=== PATIENT | female | born 1945 | race Caucasian/White ===

== ENCOUNTER 2017-07-15 17:51 | Emergency (ER) | payer MEDICARE, MEDICAID ==
[~2017-07-15] VITALS: Ht 162.6 cm; Wt 60.0 kg
[~2017-07-15 17:51] MED LIST: ALPR1TAB2 PO; BUTA1CAP57 PO; DIAZ5TAB PO; MORP-52 PO; MORP15TA3 PO; OXYC-307 PO
[2017-07-15] MEDS ORDERED: DIAZEPAM 5 MG TABLET PO ONE (19:00)
[2017-07-15] MEDS ORDERED: LORazepam 1MG TABLET PO ONE (19:00)
[2017-07-15 19:01] LABS: INTERNATIONAL NORMALIZED RATIO 0.97 (0.93-1.1)
[2017-07-15 19:05] LABS: ALANINE AMINOTRANSFERASE 22 U/L (12-78); ANION GAP 7 mmol/L (5-15); CHLORIDE 108 mmol/L (98-107); CREATININE 0.65 mg/dL (0.55-1.02)
[2017-07-15 19:08] LABS: ALKALINE PHOSPHATASE 82 U/L (45-117); BILIRUBIN,TOTAL 0.4 mg/dL (0.2-1.0); TOTAL PROTEIN 7.4 g/dL (6.4-8.2); TROPONIN I < 0.015 ng/mL (0.000-0.045)
[2017-07-15] MEDS ORDERED: DIAZEPAM 5 MG TABLET ONE (19:19)
[2017-07-15 19:28] LABS: BASOPHILS # (AUTO) 0.04 x10^3/uL (0-0.1); BASOPHILS % (AUTO) 0 % (0-1); EOSINOPHILS # (AUTO) 0.12 x10^3/uL (0-0.4); EOSINOPHILS % (AUTO) 1 % (1-7); LYMPHOCYTES # (AUTO) 2.94 x10^3/uL (1-3.4); LYMPHOCYTES % (AUTO) 30 % (22-44); MD NO; MEAN CORPUSCULAR HEMOGLOBIN 33.4 pg (27.0-34.8); MEAN CORPUSCULAR HGB CONC 34.4 g/dL (32.4-35.8); MEAN CORPUSCULAR VOLUME 97.1 fL (80-100); MEAN PLATELET VOLUME 8.5 fL (7.4-10.4); MONOCYTES # (AUTO) 1.07 x10^3/uL (0.2-0.8); MONOCYTES % (AUTO) 11 % (2-9); NEUTROPHILS # (AUTO) 5.66 x10^3/uL (1.8-6.8); NEUTROPHILS % (AUTO) 58 % (42-75); PLATELET COUNT 236 x10^3/uL (130-400); RED BLOOD COUNT 4.65 x10^6/uL (3.82-5.3); RED CELL DISTRIBUTION WIDTH 13.2 % (9.6-15.2)
[2017-07-15 20:21] VITALS: BP 142/52
== END 2017-07-15 20:30 | disposition home or self-care (01) ==
LOC: ED 20:24
DX: M54.2 Cervicalgia (principal); G89.29 Other chronic pain; F17.200 Nicotine dependence, unspecified, uncomplicated; R79.1 Abnormal coagulation profile
CPT/HCPCS: 36415; 80053; 84484; 85025; 85610; 85730; 93005; 99285

== ENCOUNTER 2017-08-06 15:53 | Inpatient (IN) | payer MEDICARE, MEDICAID ==
[~2017-08-06] VITALS: Ht 162.6 cm; Wt 67.0 kg
[2017-08-06] MEDS ORDERED: SODIUM CHLORIDE FLUSH 10ML SYR IVF ONE (16:30)
[2017-08-06 16:45] LABS: BASOPHILS # (AUTO) 0.05 x10^3/uL (0-0.1); BASOPHILS % (AUTO) 1 % (0-1); EOSINOPHILS % (AUTO) 1 % (1-7); LYMPHOCYTES # (AUTO) 2.97 x10^3/uL (1-3.4); LYMPHOCYTES % (AUTO) 29 % (22-44); MD NO; MEAN CORPUSCULAR HEMOGLOBIN 33.1 pg (27.0-34.8); MEAN CORPUSCULAR HGB CONC 34.1 g/dL (32.4-35.8); MEAN CORPUSCULAR VOLUME 97.3 fL (80-100); MEAN PLATELET VOLUME 8.3 fL (7.4-10.4); MONOCYTES # (AUTO) 0.83 x10^3/uL (0.2-0.8); MONOCYTES % (AUTO) 8 % (2-9); NEUTROPHILS # (AUTO) 6.25 x10^3/uL (1.8-6.8); NEUTROPHILS % (AUTO) 61 % (42-75); PLATELET COUNT 282 x10^3/uL (130-400); RED BLOOD COUNT 4.73 x10^6/uL (3.82-5.3); RED CELL DISTRIBUTION WIDTH 13.4 % (9.6-15.2)
[2017-08-06 16:52] LABS: INTERNATIONAL NORMALIZED RATIO 0.91 (0.93-1.1); PROTHROMBIN TIME 9.4 Seconds (9.6-11.5)
[2017-08-06 16:55] LABS: ALBUMIN 3.9 g/dL (3.4-5.0); ANION GAP 5 mmol/L (5-15); CHLORIDE 106 mmol/L (98-107); CREATININE 0.73 mg/dL (0.55-1.02)
[2017-08-06] MEDS ORDERED: DIAZ5TAB PO (17:52)
[2017-08-06] MEDS ORDERED: ROBAXIN (17:52)
[2017-08-06] MEDS ORDERED: DOCUSATE 100 MG CAPSULE PO PRN (18:30)
[2017-08-06] MEDS ORDERED: ONDANSETRON 2MG/ML, 2ML IVPush PRN (18:30)
[2017-08-06] MEDS ORDERED: BISACODYL 10 MG SUPP PR PRN (18:30)
[2017-08-06] MEDS ORDERED: POLYETHYLENE GLYCOL 17 GM PACKET PO PRN (18:30)
[2017-08-06] MEDS ORDERED: hydrALAzine 20 MG/ML, 1ML IVPush PRN (18:30)
[2017-08-06] MEDS ORDERED: SODIUM CHLORIDE FLUSH 10ML SYR IVF PRN (19:00)
[2017-08-06] MEDS ORDERED: HEPARIN 25,000 UNITS/500ML PMX 500 ML IV PRN ×2 (19:00→20:30)
[2017-08-06] MEDS ORDERED: HEPARIN 5,000 UNITS/ML, 1ML IV ONE ×2 (19:00→20:30)
[2017-08-06] MEDS ORDERED: HEPARIN 5,000 UNITS/ML, 1ML IV PRN ×2 (19:00→20:30)
[2017-08-06] MEDS: DIAZEPAM 5 MG TABLET PO SCH (21:48)
[2017-08-06] MEDS: OXYcodone/APAP 10/325MG TABLET PO SCH (21:48)
[2017-08-06] MEDS: SODIUM CHLORIDE 0.9% 1,000 ML IV SCH (21:48)
[2017-08-06 21:51] VITALS: BP 114/70
[2017-08-06] MEDS ORDERED: NICOTINE 7 MG/24 HR PATCH.TD24 TD SCH (23:00)
[2017-08-06] MEDS: morphine SULFATE 10 MG/ML, 1ML IVPush PRN (23:02)
[2017-08-07 00:57] VITALS: BP 116/56
[2017-08-07] MEDS: morphine SULFATE 10 MG/ML, 1ML IVPush PRN ×2 (02:08→05:05)
[2017-08-07 04:51] LABS: ANION GAP 6 mmol/L (5-15); CALCIUM 8.7 mg/dL (8.5-10.1); CHLORIDE 109 mmol/L (98-107); CREATININE 0.53 mg/dL (0.55-1.02)
[2017-08-07 05:03] LABS: BASOPHILS # (AUTO) 0.04 x10^3/uL (0-0.1); BASOPHILS % (AUTO) 0 % (0-1); EOSINOPHILS # (AUTO) 0.21 x10^3/uL (0-0.4); EOSINOPHILS % (AUTO) 3 % (1-7); LYMPHOCYTES # (AUTO) 3.19 x10^3/uL (1-3.4); LYMPHOCYTES % (AUTO) 37 % (22-44); MD NO; MEAN CORPUSCULAR HEMOGLOBIN 33.4 pg (27.0-34.8); MEAN CORPUSCULAR HGB CONC 34.1 g/dL (32.4-35.8); MEAN CORPUSCULAR VOLUME 97.8 fL (80-100); MEAN PLATELET VOLUME 8.4 fL (7.4-10.4); MONOCYTES # (AUTO) 0.96 x10^3/uL (0.2-0.8); MONOCYTES % (AUTO) 11 % (2-9); NEUTROPHILS # (AUTO) 4.31 x10^3/uL (1.8-6.8); NEUTROPHILS % (AUTO) 50 % (42-75); PLATELET COUNT 262 x10^3/uL (130-400); RED BLOOD COUNT 4.07 x10^6/uL (3.82-5.3); RED CELL DISTRIBUTION WIDTH 13.4 % (9.6-15.2)
[2017-08-07] MEDS: OXYcodone/APAP 10/325MG TABLET PO SCH ×2 (06:04→11:52)
[2017-08-07 09:53] VITALS: BP 128/64
[2017-08-07] MEDS: SODIUM CHLORIDE 0.9% 1,000 ML IV SCH (10:06)
[2017-08-07] MEDS: DIAZEPAM 5 MG TABLET PO SCH (10:06)
== END 2017-08-07 13:50 | disposition left against medical advice (07) | DRG 300 ==
LOC: ED 17:22 → EDIP 17:57 → 3NE 18:19
PROVIDERS: ADMIT Internal Medicine; ATTEND Internal Medicine
DX: I70.218 Atherosclerosis of native arteries of extremities with intermittent claudication, other extremity (principal); D68.69 Other thrombophilia; I11.9 Hypertensive heart disease without heart failure; D72.829 Elevated white blood cell count, unspecified; F17.210 Nicotine dependence, cigarettes, uncomplicated; I34.1 Nonrheumatic mitral (valve) prolapse; Z66 Do not resuscitate; J45.909 Unspecified asthma, uncomplicated; Z53.21 Procedure and treatment not carried out due to patient leaving prior to being seen by health care provider; Z82.3 Family history of stroke; Z86.73 Personal history of transient ischemic attack (TIA), and cerebral infarction without residual deficits; Z90.710 Acquired absence of both cervix and uterus; Z88.6 Allergy status to analgesic agent
CPT/HCPCS: 36415; 80048; 82040; 85025; 85520; 85610; 85730; 93005; 93931; 99285; J2270; J7030

== ENCOUNTER 2017-09-08 21:41 | Inpatient (IN) | payer MEDICARE, MEDICAID ==
[~2017-09-08] VITALS: Ht 162.6 cm; Wt 67.8 kg
[~2017-09-08 21:41] MED LIST changes: +ROBAXIN
[2017-09-08 22:19] LABS: BASOPHILS # (AUTO) 0.03 x10^3/uL (0-0.1); BASOPHILS % (AUTO) 0 % (0-1); EOSINOPHILS # (AUTO) 0.19 x10^3/uL (0-0.4); EOSINOPHILS % (AUTO) 2 % (1-7); LYMPHOCYTES # (AUTO) 2.83 x10^3/uL (1-3.4); LYMPHOCYTES % (AUTO) 35 % (22-44); MD NO; MEAN CORPUSCULAR HEMOGLOBIN 33.6 pg (27.0-34.8); MEAN CORPUSCULAR HGB CONC 34.5 g/dL (32.4-35.8); MEAN CORPUSCULAR VOLUME 97.3 fL (80-100); MEAN PLATELET VOLUME 7.9 fL (7.4-10.4); MONOCYTES % (AUTO) 10 % (2-9); NEUTROPHILS # (AUTO) 4.28 x10^3/uL (1.8-6.8); NEUTROPHILS % (AUTO) 53 % (42-75); PLATELET COUNT 262 x10^3/uL (130-400); RED CELL DISTRIBUTION WIDTH 13.3 % (9.6-15.2)
[2017-09-08 22:30] LABS: ALANINE AMINOTRANSFERASE 24 U/L (12-78); ALBUMIN 3.7 g/dL (3.4-5.0); ANION GAP 8 mmol/L (5-15); CALCIUM 8.7 mg/dL (8.5-10.1); CHLORIDE 108 mmol/L (98-107)
[2017-09-08] MEDS ORDERED: HYDROmorphone 2 MG/ML, 1ML ONE (22:34)
[2017-09-08 22:35] LABS: ALKALINE PHOSPHATASE 82 U/L (45-117); BILIRUBIN,TOTAL 0.3 mg/dL (0.2-1.0); TOTAL PROTEIN 6.8 g/dL (6.4-8.2); TROPONIN I < 0.015 ng/mL (0.000-0.045)
[2017-09-08] MEDS: HYDROmorphone 2 MG/ML, 1ML IVPush PRN ×2 (22:47→23:35)
[2017-09-08] MEDS ORDERED: HEPARIN 5,000 UNITS/ML, 1ML IV ONE ×2 (23:30→23:45)
[2017-09-08] MEDS ORDERED: HEPARIN 25,000 UNITS/500ML PMX 500 ML IV PRN (23:30)
[2017-09-08] MEDS ORDERED: HEPARIN 5,000 UNITS/ML, 1ML IV PRN (23:30)
[2017-09-09] MEDS ORDERED: DOCUSATE 100 MG CAPSULE PO PRN
[2017-09-09] MEDS ORDERED: ONDANSETRON 2MG/ML, 2ML IVPush PRN ×2
[2017-09-09] MEDS ORDERED: POLYETHYLENE GLYCOL 17 GM PACKET PO PRN
[2017-09-09] MEDS ORDERED: ENALAPRILAT 1.25 MG/ML, 2ML IVPush PRN
[2017-09-09] MEDS ORDERED: BISACODYL 10 MG SUPP PR PRN
[2017-09-09] MEDS ORDERED: HYDROmorphone 2 MG/ML, 1ML IVPush PRN
[2017-09-09 00:06] LABS: INTERNATIONAL NORMALIZED RATIO 0.93 (0.93-1.1); PROTHROMBIN TIME 9.7 Seconds (9.6-11.5)
[2017-09-09 00:55] VITALS: BP 155/78
[2017-09-09] MEDS: NS + 20MEQ KCL 1,000 ML IV SCH ×2 (01:34→13:40)
[2017-09-09] MEDS: BUTALB/APAP/CAFFEINE 50MG/325MG/40MG PO SCH ×6 (01:35→20:40)
[2017-09-09] MEDS: HEPARIN 25,000 UNITS/500ML PMX 500 ML IV PRN (01:37)
[2017-09-09] MEDS: morphine SULFATE 10 MG/ML, 1ML IVPush PRN ×5 (02:47→23:10)
[2017-09-09] MEDS: OXYcodone/APAP 10/325MG TABLET PO SCH ×5 (06:01→21:20)
[2017-09-09 07:19] VITALS: BP 164/73
[2017-09-09 07:40] LABS: BASOPHILS # (AUTO) 0.04 x10^3/uL (0-0.1); BASOPHILS % (AUTO) 0 % (0-1); EOSINOPHILS # (AUTO) 0.19 x10^3/uL (0-0.4); EOSINOPHILS % (AUTO) 2 % (1-7); LYMPHOCYTES # (AUTO) 3.28 x10^3/uL (1-3.4); LYMPHOCYTES % (AUTO) 34 % (22-44); MD NO; MEAN CORPUSCULAR HEMOGLOBIN 32.9 pg (27.0-34.8); MEAN CORPUSCULAR HGB CONC 34.2 g/dL (32.4-35.8); MEAN CORPUSCULAR VOLUME 96.2 fL (80-100); MEAN PLATELET VOLUME 7.8 fL (7.4-10.4); MONOCYTES # (AUTO) 0.84 x10^3/uL (0.2-0.8); MONOCYTES % (AUTO) 9 % (2-9); NEUTROPHILS % (AUTO) 55 % (42-75); PLATELET COUNT 260 x10^3/uL (130-400); RED BLOOD COUNT 4.53 x10^6/uL (3.82-5.3); RED CELL DISTRIBUTION WIDTH 13.1 % (9.6-15.2)
[2017-09-09 07:50] LABS: ANION GAP 5 mmol/L (5-15); CALCIUM 8.5 mg/dL (8.5-10.1); CHLORIDE 109 mmol/L (98-107); CREATININE 0.61 mg/dL (0.55-1.02)
[2017-09-09] MEDS: DIAZEPAM 5 MG TABLET PO SCH ×2 (08:45→20:40)
[2017-09-09] MEDS: HEPARIN 5,000 UNITS/ML, 1ML IV PRN ×2 (10:10→17:46)
[2017-09-09 12:42] VITALS: BP 160/79
[2017-09-09 18:29] VITALS: BP 86/55
[2017-09-09 18:46] VITALS: BP 152/74
[2017-09-10] MEDS: BUTALB/APAP/CAFFEINE 50MG/325MG/40MG PO SCH ×7 (00:28→23:28)
[2017-09-10] MEDS: HEPARIN 5,000 UNITS/ML, 1ML IV PRN ×2 (00:39→14:52)
[2017-09-10 01:25] VITALS: BP 130/59
[2017-09-10] MEDS: HEPARIN 25,000 UNITS/500ML PMX 500 ML IV PRN (02:04)
[2017-09-10] MEDS: morphine SULFATE 10 MG/ML, 1ML IVPush PRN ×6 (02:41→23:28)
[2017-09-10] MEDS: NS + 20MEQ KCL 1,000 ML IV SCH ×2 (03:10→16:44)
[2017-09-10] MEDS: OXYcodone/APAP 10/325MG TABLET PO SCH ×5 (06:04→20:58)
[2017-09-10 07:48] VITALS: BP 112/70
[2017-09-10] MEDS: DIAZEPAM 5 MG TABLET PO SCH ×2 (09:09→20:58)
[2017-09-10 14:34] VITALS: BP 121/73
[2017-09-10 19:20] VITALS: BP 171/78
[2017-09-10 19:44] VITALS: BP 145/84
[2017-09-11 03:02] VITALS: BP 157/89
[2017-09-11] MEDS: morphine SULFATE 10 MG/ML, 1ML IVPush PRN ×2 (03:14→08:15)
[2017-09-11] MEDS: BUTALB/APAP/CAFFEINE 50MG/325MG/40MG PO SCH ×3 (03:53→11:38)
[2017-09-11] MEDS: NS + 20MEQ KCL 1,000 ML IV SCH (05:00)
[2017-09-11] MEDS: OXYcodone/APAP 10/325MG TABLET PO SCH (05:57)
[2017-09-11 07:49] VITALS: BP 149/71
[2017-09-11] MEDS: DIAZEPAM 5 MG TABLET PO SCH (08:10)
[2017-09-11] MEDS ORDERED: OXYcodone/APAP 10/325MG TABLET PO PRN (09:00)
[2017-09-11] MEDS ORDERED: NIFE10CA2 PO (13:26)
[2017-09-16] MEDS ORDERED: ONDA4TAB13 PO (09:45)
[2017-09-16] MEDS ORDERED: METH500T97 PO (09:45)
[2017-09-16] MEDS ORDERED: GABA300C PO (09:45)
[2017-09-16] MEDS ORDERED: ALBU8.5H8 INH (09:59)
[2017-09-16] MEDS ORDERED: ALBU1.25 NEB (09:59)
== END 2017-09-11 13:42 | disposition home health service (06) | DRG 301 ==
LOC: ED 23:02 → EDIP 23:35 → 3NE 09-09 00:30
PROVIDERS: ADMIT Hospitalist; ATTEND Hospitalist
DX: I70.228 Atherosclerosis of native arteries of extremities with rest pain, other extremity (principal); F17.210 Nicotine dependence, cigarettes, uncomplicated; I11.9 Hypertensive heart disease without heart failure; I34.1 Nonrheumatic mitral (valve) prolapse; I77.1 Stricture of artery; J45.909 Unspecified asthma, uncomplicated; Z66 Do not resuscitate; G89.29 Other chronic pain; M19.90 Unspecified osteoarthritis, unspecified site; M54.9 Dorsalgia, unspecified; I65.22 Occlusion and stenosis of left carotid artery; Z82.3 Family history of stroke; Z86.73 Personal history of transient ischemic attack (TIA), and cerebral infarction without residual deficits; Z90.710 Acquired absence of both cervix and uterus; Z91.19 Patient's noncompliance with other medical treatment and regimen
CPT/HCPCS: 36415; 71045; 80048; 80053; 84484; 85025; 85520; 85610; 93005; 96374; 96376; J1170; J1644; J3480; J2270

== ENCOUNTER 2017-10-02 14:10 | Emergency (ER) | payer MEDICARE, MEDICAID ==
[~2017-10-02] VITALS: Ht 162.6 cm; Wt 58.0 kg
[~2017-10-02 14:10] MED LIST changes: +ALBU1.25 NEB; +ALBU8.5H8 INH; +GABA300C PO; +METH500T97 PO; +NIFE10CA2 PO; +ONDA4TAB13 PO
[2017-10-02 14:27] VITALS: BP 129/62
[2017-10-02 15:00] LABS: BASOPHILS # (AUTO) 0.03 x10^3/uL (0-0.1); BASOPHILS % (AUTO) 0 % (0-1); EOSINOPHILS % (AUTO) 2 % (1-7); LYMPHOCYTES # (AUTO) 3.91 x10^3/uL (1-3.4); LYMPHOCYTES % (AUTO) 38 % (22-44); MD NO; MEAN CORPUSCULAR HEMOGLOBIN 33.3 pg (27.0-34.8); MEAN CORPUSCULAR HGB CONC 34.6 g/dL (32.4-35.8); MEAN CORPUSCULAR VOLUME 96.4 fL (80-100); MONOCYTES # (AUTO) 1.03 x10^3/uL (0.2-0.8); MONOCYTES % (AUTO) 10 % (2-9); NEUTROPHILS # (AUTO) 5.19 x10^3/uL (1.8-6.8); NEUTROPHILS % (AUTO) 50 % (42-75); PLATELET COUNT 275 x10^3/uL (130-400); RED CELL DISTRIBUTION WIDTH 13.2 % (9.6-15.2)
[2017-10-02 15:09] LABS: ALBUMIN 3.9 g/dL (3.4-5.0); ANION GAP 7 mmol/L (5-15); CALCIUM 8.8 mg/dL (8.5-10.1); CHLORIDE 104 mmol/L (98-107)
[2017-10-02 15:10] LABS: CREATININE 0.58 mg/dL (0.55-1.02)
[2017-10-02] MEDS ORDERED: OxyconTIN ER 15 MG TAB.ER PO STA (17:53)
== END 2017-10-02 18:16 | disposition home or self-care (01) ==
LOC: ED 16:36
DX: M79.642 Pain in left hand (principal); I10 Essential (primary) hypertension; I25.2 Old myocardial infarction; I77.9 Disorder of arteries and arterioles, unspecified; G89.29 Other chronic pain; F17.210 Nicotine dependence, cigarettes, uncomplicated; M79.89 Other specified soft tissue disorders
CPT/HCPCS: 36415; 80048; 82040; 85025; 93931; 99285

== ENCOUNTER 2018-02-20 18:45 | Emergency (ER) | payer MEDICARE, MEDICAID ==
[~2018-02-20] VITALS: Ht 165.1 cm; Wt 55.0 kg
[~2018-02-20 18:45] MED LIST changes: -NIFE10CA2 PO; +NIFE10CA49 PO
--- NOTE | 2018-02-20 18:52 | NUR ---
DARYN. REPORT RECEIVED FROM EMS. PT C/O EPIGASTRIC PAIN WITH SOB ALL DAY TODAY. NSR WITHOUT ECTOPY ON C S S REPRESENTATIVE PRODUCTION SUPERVISOR OFF SHIFT. PT HAS HX OF STROKE ON AND HAS LEFT SIDED WEAKNESS. NO IVP ESTABLISHED BY EMS. NO MEDS PRODUCTION SUPERVISOR OFF SHIFT. EKG DONE AT BEDSIDE BY EDT ON ARRIVAL. PT DENIES V/D/GR AT THIS TIME. ALL MONITORS IN PLACE. CALL LIGHT WITHIN REACH. PT AOX4. RESPS EVEN AND UNLABORED.
[2018-02-20] MEDS ORDERED: DIAZEPAM 5 MG TABLET PO ONE (19:30)
[2018-02-20] MEDS ORDERED: DIAZEPAM 5 MG TABLET ONE (19:46)
[2018-02-20] MEDS ORDERED: MIRTAZAPINE (20:00)
[2018-02-20] MEDS ORDERED: NIFEDIPINE (20:01)
--- NOTE | 2018-02-20 20:03 | NUR ---
PT MEDICATED PER EMAR. PT TOLERATED WELL. ALL MONITORS IN PLACE. CALL LIGHT WITHIN REACH. NSR WITHOUT ECTOPY ON CHIEF METER READER RATE 70'S.
--- NOTE | 2018-02-20 20:03 | NUR ---
Note braxton in EDM - 02/20/18 at 2015 by CLARISSA PT MEDICATED PER EMAR. PT TOLERATED WELL. ALL MONITORS IN PLACE. CALL LIGHT WITHIN REACH.
--- NOTE | 2018-02-20 20:11 | NUR ---
PT URINATING IN BEDSIDE COMMODE AT THIS TIME FOR UA.
[2018-02-20 20:25] LABS: BASOPHILS # (AUTO) 0.08 x10^3/uL (0-0.1); BASOPHILS % (AUTO) 1 % (0-1); EOSINOPHILS # (AUTO) 0.81 x10^3/uL (0-0.4); EOSINOPHILS % (AUTO) 10 % (1-7); LYMPHOCYTES # (AUTO) 2.52 x10^3/uL (1-3.4); LYMPHOCYTES % (AUTO) 30 % (22-44); MD NO; MEAN CORPUSCULAR HEMOGLOBIN 33.4 pg (27.0-34.8); MEAN CORPUSCULAR HGB CONC 34.3 g/dL (32.4-35.8); MEAN CORPUSCULAR VOLUME 97.2 fL (80-100); MEAN PLATELET VOLUME 8.8 fL (7.4-10.4); MONOCYTES # (AUTO) 0.94 x10^3/uL (0.2-0.8); MONOCYTES % (AUTO) 11 % (2-9); NEUTROPHILS # (AUTO) 4.02 x10^3/uL (1.8-6.8); NEUTROPHILS % (AUTO) 48 % (42-75); PLATELET COUNT 245 x10^3/uL (130-400); RED BLOOD COUNT 4.58 x10^6/uL (3.82-5.3); RED CELL DISTRIBUTION WIDTH 12.2 % (9.6-15.2)
[2018-02-20 20:32] LABS: INTERNATIONAL NORMALIZED RATIO 0.95 (0.93-1.1); PROTHROMBIN TIME 10.1 Seconds (9.6-11.5)
[2018-02-20 20:36] LABS: ALANINE AMINOTRANSFERASE 61 U/L (12-78); ALBUMIN 3.6 g/dL (3.4-5.0); ANION GAP 7 mmol/L (5-15); CALCIUM 8.6 mg/dL (8.5-10.1); CHLORIDE 109 mmol/L (98-107); CREATININE 0.57 mg/dL (0.55-1.02)
[2018-02-20 20:40] LABS: ALKALINE PHOSPHATASE 123 U/L (45-117); BILIRUBIN,TOTAL 0.2 mg/dL (0.2-1.0); TOTAL PROTEIN 6.7 g/dL (6.4-8.2); TROPONIN I < 0.015 ng/mL (0.000-0.045)
[2018-02-20 20:46] LABS: CULTURE INDICATED? YES; MICROSCOPIC INDICATED
--- NOTE | 2018-02-20 21:00 | NUR ---
PRECEPTOR NOTE: AUDRA HINOJOSA AT BEDSIDE TO REASSESS PT. INFORMED PT REQUESTING MED FOR CHEST PAIN. EXPLAINED RESULTS AND POC TO PT. RN AWAITING DC ORDERS FROM AT THIS TIME.
--- NOTE | 2018-02-20 21:04 | NUR ---
EDMD AT BEDSIDE AND EXPLAINING ALL RESULTS. ALL MONITORS IN PLACE. CALL LIGHT WITHIN REACH. AWAITING DC.
--- NOTE | 2018-02-20 21:57 | NUR ---
PT NOTIFIED SHE WOULD BE DISCHARGED. PT STATES AT TIME OF DISCHARGE, "HOW AM I SUPPOSED TO GET INTO MY HOUSE? I USE A POWER WHEELCHAIR AND I CAN'T WALK" RN'S ATTEMPTED TO AMBULATE PT WITH WALKER, PT NOT AMBULATORY WITH WALKER. AUDRA HINOJOSA NOTIFIED.
[2018-02-20] MEDS ORDERED: SODIUM CHLORIDE 0.9% 1,000 ML IV SCH (22:54)
[2018-02-20] MEDS ORDERED: CEFTRIAXONE PMX 1GM/50ML 50 ML IV SCH (23:00)
[2018-02-20] MEDS ORDERED: OXYCODONE HCL PO SCH (23:00)
[2018-02-20] MEDS ORDERED: [UNRECOGNIZED DRUG - OTHER] PO SCH (23:00)
[2018-02-20] MEDS ORDERED: hydrALAzine 20 MG/ML, 1ML IVPush PRN (23:00)
[2018-02-20] MEDS ORDERED: ENOXAPARIN 40 MG/0.4 ML SQ SCH (23:00)
[2018-02-20] MEDS ORDERED: ACETAMINOPHEN 325 MG TABLET PO PRN (23:00)
[2018-02-20] MEDS ORDERED: ACETAMINOPHEN PO SCH (23:00)
[2018-02-20] MEDS ORDERED: POLYETHYLENE GLYCOL 17 GM PACKET PO PRN (23:00)
[2018-02-20] MEDS ORDERED: ONDANSETRON ODT 4 MG PO PRN (23:00)
--- NOTE | 2018-02-20 23:08 | NUR ---
HOSPITALIST FLORENCIO ROQUE NOTIFIED PT REQUESTING PAIN MED FOR CHRONIC LOWER BACK AND BILATERAL KNEE PAIN.
--- NOTE | 2018-02-20 23:20 | NUR ---
pt sleeping on gurney, resps even and unlabored. nsr on alarm security or surveillance monitor. vss. awaiting medical bed and transport at this time.
[2018-02-21] MEDS ORDERED: CEFTRIAXONE PMX 1GM/50ML 50 ML ONE
--- NOTE | 2018-02-21 00:02 | NUR ---
REPORT TO RN DUNG AT BEDSIDE. PT SLEEPING ON GURNEY, RESPS EVEN AND UNLABORED.
[2018-02-21] MEDS ORDERED: ENOXAPARIN 40 MG/0.4 ML ONE (00:25)
--- NOTE | 2018-02-21 00:26 | NUR ---
PT RESTING ON GURNEY WITH EYES CLOSED, NADN, IV FLUIDS AND ABX INFUSING, SIDERAILS UP X2, CALL LIGHT WITHIN REACH, AWAITING ROOM FOR TRANSFER
--- NOTE | 2018-02-21 01:05 | NUR ---
TASK RN: PT MOVED TO ROOM 39 VIA HOSPITAL BED. BP/SPO2/ECG MONITORING IN PLACE. NSR ON MONITOR.
[2018-02-21] MEDS ORDERED: GABAPENTIN 300 MG CAPSULE ONE (01:26)
[2018-02-21] MEDS: TEMPLATE NON-FORMULARY MED. (Gabapentin** (Neurontin**) 300 MG) PO SCH ×2 (01:29→09:00)
[2018-02-21] MEDS ORDERED: OXYcodone/APAP 10/325MG TABLET ONE ×2 (01:32→07:30)
[2018-02-21] MEDS: [UNRECOGNIZED DRUG - OTHER] PO PRN ×2 (01:35→07:35)
[2018-02-21] MEDS: ACETAMINOPHEN PO PRN ×2 (01:35→07:35)
[2018-02-21] MEDS: OXYCODONE HCL PO PRN ×2 (01:35→07:35)
--- NOTE | 2018-02-21 01:38 | NUR ---
pt resting in bed, c/o left wrist pain, pt medicated per mar,denies further needs at this time, siderails up x2, call light within reach.
--- NOTE | 2018-02-21 02:23 | NUR ---
PT RESTING IN BED WITH EYES CLOSED, NADN, RESPIRATIONS EVEN AND UNLABORED, SIDERAILS UP X2, CALL LIGHT WITHIN REACH.
[2018-02-21] MEDS ORDERED: ACETAMINOPHEN 325 MG TABLET ONE (04:30)
--- NOTE | 2018-02-21 05:12 | NUR ---
PT RESTING WITH EYES CLOSED, NADN, EQUAL CHEST RISE/FALL OBSERVED, CALL LIGHT WITHIN REACH.
--- NOTE | 2018-02-21 06:48 | NUR ---
report given to luca green
--- NOTE | 2018-02-21 07:08 | NUR ---
PT ABLE TO GET TO BSC WITH TWO PERSON ASSIST. PT EDUCATED REGARDING POSSIBLE PT COMING TO ASSESS HER TODAY. PT STATES "I'M NOT DOING PT. I DID IT BEFORE. I HAVE ARTHRITIS IN BOTH OF MY HIPS AND I HAD A STROKE." PT BACK INTO BED. PT DEMANDING PAIN MEDICATIONS. WILL CONTINUE TO MONITOR.
--- NOTE | 2018-02-21 07:10 | NUR ---
LATE ENTRY FOR 0700 RECEIVED BEDSIDE REPORT FROM AVERY RAZO.
--- NOTE | 2018-02-21 07:37 | NUR ---
PT EDUCATED REGARDING PAIN REGEMIN ORDERED. PT VERBALIZED UNDERSTANDING. MEDICATION ADMINISTERED PER EMAR. DIET TRAY ORDERED. PT GIVEN ANOTHER BLANKET. NO NEEDS REQUESTED AT THIS TIME.
[2018-02-21] MEDS ORDERED: DIAZEPAM 5 MG TABLET PO SCH (09:00)
--- NOTE | 2018-02-21 09:00 | NUR ---
PT SLEEPING ON HOSP BED. NO ACUTE DISTRESS NOTED. RESPS EQUAL AND UNLABORED. HOSPITALIST HAS ALREADY BEEN IN SPEAKING WITH PT EARLIER. WILL CONTINUE TO MONITOR.
--- NOTE | 2018-02-21 09:01 | NUR ---
LATE ENTRY FOR 0820 HOSPITALIST BEDSIDE. PT STATES SHE HAS RIGHT HAND PAIN, WHICH IS CHRONIC. NO C/O CP, SOB, N/V/D, ABD PAIN. PT STATES "I WON'T GO BACK TO [place]! I CHECKED MYSELF OUT OF THAT PLACE! I FEEL SAFE AT HOME." NO ACUTE DISTRESS NOTED. WILL CONTINUE TO MONITOR.
--- NOTE | 2018-02-21 10:19 | NUR ---
PT SLEEPING ON GURNEY. NO ACUTE DISTRESS NOTED. RESPS EQUAL AND UNLABORED. WILL CONTINUE TO MONITOR.
--- NOTE | 2018-02-21 11:10 | NUR ---
pt sleeping on hosp bed. NO ACUTE DISTRES NOTED. RESPS EQUAL AND UNLABORED. WILL CONTINUE TO MONITOR.
--- NOTE | 2018-02-21 11:33 | NUR ---
PT ASSISTED TO BSC. NO ACUTE DISTRESS NOTED. DIET TRAY ORDERED. NO NEEDS REQUESTED AT THIS TIME.
--- NOTE | 2018-02-21 12:05 | NUR ---
PT STATES SHE HAS A GR. PT OFFERED TYLENOL. PT REFUSING TYLENOL AT THIS TIME.
[2018-02-21 12:49] VITALS: BP 153/54
--- NOTE | 2018-02-21 13:09 | NUR ---
PT UP TO BSC. PT DID NOT URINATE. PT BACK TO HOSP BED. PT GIVEN LUNCH TRAY. NO ACUTE DISTRESS NOTED.
[2018-02-21] MEDS ORDERED: GABAPENTIN 300 MG CAPSULE PO SCH (13:28)
[2018-02-21] MEDS ORDERED: ALBUTEROL SULFATE 2.5MG/0.5ML NPPB PRN (13:30)
[2018-02-21] MEDS ORDERED: OXYcodone/APAP 10/325MG TABLET PO PRN (13:30)
[2018-02-21] MEDS ORDERED: CEFD300C37 PO (14:23)
--- NOTE | 2018-02-21 15:32 | NUR ---
PT EDUCATED REGARDING ALL DISCHARGE INSTRUCTIONS. INCLUDING FOLLOW UP APPT SCHEDULED FOR 02/24/2018. PT STATES SHE HAS AN APPT AT THE END OF FEBRUARY. I EXPRESSED TO PT TO GO ON SATURDAY AND NOT CANCEL THE APPT THAT IS SCHEDULED FOR HER AND TALK ABOUT THE END OF FEB APPT WHEN SHE FOLLOWS UP 02/24/2018. PIV D/C WITH TIP INTACT. PRESSURE DRESSING APPLIED.
--- NOTE | 2018-02-21 15:35 | NUR ---
PT DRESSED AND AWAITING TRANSPORTATION. PT NOW LAYING BACK DOWN ON HOSP BED.
--- NOTE | 2018-02-21 16:15 | NUR ---
LATE ENTRY FOR 1600 PT TRANSPORTED VIA [employer] TO HOME. PT LEFT WITH ALL PERSONAL BELONGINGS
== END 2018-02-21 16:17 | disposition home or self-care (01) ==
LOC: ED 20:30 → EDIP 22:21 → UNDOADMIN 22:21
DX: N39.0 Urinary tract infection, site not specified (principal); I10 Essential (primary) hypertension; F17.200 Nicotine dependence, unspecified, uncomplicated; R53.81 Other malaise
CPT/HCPCS: 36415; 71045; 80053; 81001; 83605; 83690; 84484; 85025; 85610; 87086; 93005; 96365; 96372; 99284; J0696; J1650; J7030

== ENCOUNTER 2018-03-10 21:32 | Inpatient (IN) | payer MEDICARE, MEDICAID ==
[~2018-03-10] VITALS: Ht 162.6 cm; Wt 63.0 kg
[~2018-03-10 21:32] MED LIST changes: +CEFD300C37 PO; +MIRTAZAPINE; +NIFEDIPINE
--- NOTE | 2018-03-10 22:06 | NUR ---
REPORT FROM AVERY HUNTER. PT LAYING IN [facility], NAD NOTED. PT AWAKE/ALERT, PWD. PT SIGNED CONSENT FOR MEDICAL RECORDS FROM [facility]. BP/SPO2/ECG MONITOR IN PLACE. NSR ON MONITOR.
[2018-03-10] MEDS ORDERED: MECLIZINE CHEWABLE 25 MG TAB ONE (22:22)
--- NOTE | 2018-03-10 22:24 | NUR ---
PT MEDICATED PER EMAR FOR DIZZINESS.
[2018-03-10] MEDS ORDERED: SODIUM CHLORIDE FLUSH 10ML SYR IVF ONE (22:30)
[2018-03-10] MEDS ORDERED: MECLIZINE CHEWABLE 25 MG TAB PO ONE (22:30)
[2018-03-10] MEDS ORDERED: HYDROcodone/APAP 5/325 TABLET ONE (22:51)
--- NOTE | 2018-03-10 22:51 | NUR ---
PT NEED PAIN MEDS BEFORE CT.
--- NOTE | 2018-03-10 22:55 | NUR ---
PT REFUSING TO GO TO CT WO PAIN MEDICATIONS. ERP AWARE. PT MEDICATED PER EMAR FOR GR
[2018-03-10 22:58] LABS: BASOPHILS # (AUTO) 0.04 x10^3/uL (0-0.1); BASOPHILS % (AUTO) 0 % (0-1); EOSINOPHILS # (AUTO) 0.59 x10^3/uL (0-0.4); EOSINOPHILS % (AUTO) 5 % (1-7); LYMPHOCYTES # (AUTO) 1.97 x10^3/uL (1-3.4); LYMPHOCYTES % (AUTO) 15 % (22-44); MD NO; MEAN CORPUSCULAR HEMOGLOBIN 33.8 pg (27.0-34.8); MEAN CORPUSCULAR HGB CONC 35.1 g/dL (32.4-35.8); MEAN CORPUSCULAR VOLUME 96.3 fL (80-100); MEAN PLATELET VOLUME 9.1 fL (7.4-10.4); MONOCYTES # (AUTO) 0.96 x10^3/uL (0.2-0.8); MONOCYTES % (AUTO) 7 % (2-9); NEUTROPHILS # (AUTO) 9.61 x10^3/uL (1.8-6.8); NEUTROPHILS % (AUTO) 73 % (42-75); PLATELET COUNT 348 x10^3/uL (130-400); RED BLOOD COUNT 4.48 x10^6/uL (3.82-5.3); RED CELL DISTRIBUTION WIDTH 12.9 % (9.6-15.2)
[2018-03-10] MEDS ORDERED: HYDROcodone/APAP 5/325 TABLET PO ONE (23:00)
[2018-03-10 23:05] LABS: ALANINE AMINOTRANSFERASE 51 U/L (12-78); ALBUMIN 3.6 g/dL (3.4-5.0); ANION GAP 10 mmol/L (5-15); CALCIUM 8.8 mg/dL (8.5-10.1); CHLORIDE 109 mmol/L (98-107); CREATININE 0.46 mg/dL (0.55-1.02)
[2018-03-10 23:09] LABS: ALKALINE PHOSPHATASE 129 U/L (45-117); BILIRUBIN,TOTAL 0.2 mg/dL (0.2-1.0); TROPONIN I < 0.015 ng/mL (0.000-0.045)
--- NOTE | 2018-03-10 23:18 | NUR ---
PT REPORTS LITTLE IMPROVEMENT WITH PAIN MEDICATIONS. LIGHTS DIMMED FOR COMFORT. POC IS ADMIT. TECH AT BEDSIDE TO PLACE IV.
[2018-03-10 23:24] LABS: INTERNATIONAL NORMALIZED RATIO 0.94 (0.93-1.1)
[2018-03-10] MEDS ORDERED: CLOP75TA PO (23:25)
[2018-03-10] MEDS ORDERED: METF500T17 PO (23:25)
[2018-03-10] MEDS ORDERED: FIORICET PO (23:25)
[2018-03-10] MEDS ORDERED: ATOR-2 PO (23:25)
[2018-03-11] MEDS ORDERED: SODIUM CHLORIDE FLUSH 10ML SYR IVF PRN
--- NOTE | 2018-03-11 00:25 | NUR ---
REPORT TO AVERY MYERS
[2018-03-11 01:17] VITALS: BP 122/67
[2018-03-11] MEDS ORDERED: DOCUSATE 100 MG CAPSULE PO PRN (02:30)
[2018-03-11] MEDS ORDERED: LIDODERM 5% PATCH TD PRN (02:30)
[2018-03-11] MEDS ORDERED: ONDANSETRON 4 MG TABLET PO PRN (02:30)
[2018-03-11] MEDS ORDERED: LABETALOL 5MG/ML, 20ML IV PRN (02:30)
[2018-03-11] MEDS ORDERED: ALBUTEROL SULFATE 2.5 MG/3 ML NPPB PRN ×2 (02:30→03:30)
[2018-03-11] MEDS: BUTALB/APAP/CAFFEINE 50MG/325MG/40MG PO PRN ×3 (02:35→15:28)
[2018-03-11] MEDS: OXYcodone IR 5MG TABLET PO PRN ×4 (03:49→18:20)
[2018-03-11] MEDS: ACETAMINOPHEN 325 MG TABLET PO PRN (05:36)
[2018-03-11 07:22] VITALS: BP 134/72
[2018-03-11] MEDS: CLOPIDOGREL 75 MG TABLET PO SCH (07:57)
[2018-03-11] MEDS: metFORMIN 500 MG TABLET PO SCH ×2 (07:57→21:59)
[2018-03-11] MEDS: GABAPENTIN 300 MG CAPSULE PO SCH ×3 (07:57→21:59)
[2018-03-11] MEDS: DIAZEPAM 5 MG TABLET PO SCH ×2 (07:57→21:59)
[2018-03-11] MEDS ORDERED: SENNA/DOCUSATE TABLET ONE (10:58)
[2018-03-11] MEDS ORDERED: NICOTINE 14MG/24 HR PATCH.TD24 ONE (10:58)
[2018-03-11] MEDS: NICOTINE 14MG/24 HR PATCH.TD24 TD SCH (11:01)
[2018-03-11] MEDS: SENNA/DOCUSATE TABLET PO SCH (11:01)
[2018-03-11 12:22] VITALS: BP 137/72
[2018-03-11 15:47] LABS: MICROSCOPIC AUTO
[2018-03-11 15:50] LABS: CULTURE INDICATED? YES
[2018-03-11 18:41] VITALS: BP 116/64
[2018-03-11] MEDS ORDERED: ATORVASTATIN 80 MG TABLET PO SCH (21:00)
[2018-03-12] MEDS: OXYcodone IR 5MG TABLET PO PRN ×4 (00:35→16:11)
[2018-03-12 03:36] VITALS: BP 119/64
[2018-03-12] MEDS ORDERED: LIDODERM 5% PATCH TD PRN (04:30)
[2018-03-12] MEDS ORDERED: LIDODERM 5% PATCH TD ONE (04:35)
[2018-03-12] MEDS: BUTALB/APAP/CAFFEINE 50MG/325MG/40MG PO PRN ×3 (05:43→16:11)
[2018-03-12 06:03] LABS: CHOL/HDL RATIO 2.6; LDL/HDL RATIO 0.7 (0.5-3.0)
[2018-03-12 07:28] VITALS: BP 126/67
[2018-03-12] MEDS: DIAZEPAM 5 MG TABLET PO SCH (09:38)
[2018-03-12] MEDS: GABAPENTIN 300 MG CAPSULE PO SCH ×2 (09:38→16:11)
[2018-03-12] MEDS: metFORMIN 500 MG TABLET PO SCH (09:38)
[2018-03-12] MEDS: SENNA/DOCUSATE TABLET PO SCH (09:38)
[2018-03-12] MEDS: CLOPIDOGREL 75 MG TABLET PO SCH (09:38)
[2018-03-12] MEDS: NICOTINE 14MG/24 HR PATCH.TD24 TD SCH (12:07)
[2018-03-12 14:35] VITALS: BP 120/61
[2018-03-12] MEDS: ACETAMINOPHEN 325 MG TABLET PO PRN (14:35)
[2018-03-12] MEDS ORDERED: CLOP75TA PO (15:12)
[2018-03-12] MEDS ORDERED: METF500T17 PO (15:12)
[2018-03-12] MEDS ORDERED: SENN1TAB8 PO (15:12)
[2018-03-12] MEDS ORDERED: GABA300C PO (15:12)
[2018-03-12] MEDS ORDERED: ATOR-2 PO (15:12)
[2018-03-12] MEDS ORDERED: ALBU1.25 NEB (15:12)
== END 2018-03-12 16:45 | disposition home health service (06) | DRG 67 ==
LOC: ED 23:10 → 4WST 23:59 → DCLOUNGE 03-12 16:32
PROVIDERS: ADMIT Internal Medicine; ATTEND Internal Medicine
DX: I65.21 Occlusion and stenosis of right carotid artery (principal); I61.9 Nontraumatic intracerebral hemorrhage, unspecified; E11.51 Type 2 diabetes mellitus with diabetic peripheral angiopathy without gangrene; F17.210 Nicotine dependence, cigarettes, uncomplicated; F32.9 Major depressive disorder, single episode, unspecified; F43.12 Post-traumatic stress disorder, chronic; G43.909 Migraine, unspecified, not intractable, without status migrainosus; G93.89 Other specified disorders of brain; I11.9 Hypertensive heart disease without heart failure; I34.1 Nonrheumatic mitral (valve) prolapse; J44.9 Chronic obstructive pulmonary disease, unspecified; M19.90 Unspecified osteoarthritis, unspecified site; M51.9 Unspecified thoracic, thoracolumbar and lumbosacral intervertebral disc disorder; Z79.02 Long term (current) use of antithrombotics/antiplatelets; Z82.3 Family history of stroke; Z85.828 Personal history of other malignant neoplasm of skin; Z90.710 Acquired absence of both cervix and uterus; Z89.029 Acquired absence of unspecified finger(s)
CPT/HCPCS: 36415; 70450; 70551; 80053; 80061; 81001; 82962; 84484; 85025; 85610; 85730; 87086; 93005; 93880; 99285; G0378; 92523-GN

== ENCOUNTER 2018-03-21 21:06 | Emergency (ER) | payer MEDICARE, MEDICAID ==
[~2018-03-21] VITALS: Ht 160 cm; Wt 51.0 kg
[~2018-03-21 21:06] MED LIST changes: +ATOR-2 PO; +CLOP75TA PO; +FIORICET PO; +METF500T17 PO; +SENN1TAB8 PO
--- NOTE | 2018-03-21 22:15 | NUR ---
FIRST PT CONTACT, BROUGHT TO ROOM FROM LOBBY VIA WHEELCHAIR
--- NOTE | 2018-03-21 22:26 | NUR ---
PT TO ROOM AT THIS TIME, VERY ANGRY DISHEVELLED LADY WITH L SIDE WEAKNESS THAT HAS BEEN PRESENT FOR SOME TIME SHE HAS HISTORY OF STROKES, CHIEF COMPLAINTS AT THIS TIME IS THAT SHE HAS BEEN HAVING STROKES ALL DAYS, WAS SEEN AT [facility] AND DISCHARGED STATES THAT "THEY DON'T KNOW WHAT THEY ARE DOING", ALSO STATES THAT GENE "STOLE HER MEIDCATIONS EITHER YESTERDAY OR TODAY AND THAT THEY ARE ALL DRUG ADDICTS". SPEECH IS CLEAR, NO FACIAL DROOP NOTED, L ARM WEAKNESS PRESENT SINCE JANUARY WHEN SHE HAD HER STROKE. PT ABLE TO MOVE SELF TO GURNEY FROM WHEELCHAIR, ASSISTED WITH CHANGING REQUIRES FREQUENT REDIRECTION. PA TO BEDISDE.
--- NOTE | 2018-03-21 22:30 | NUR ---
WARM BLANKETS GIVEN AND PT NOTES THAT SHE IS IN EXCRUIATING PAIN ALL OVER.
[2018-03-21] MEDS ORDERED: OXYcodone/APAP 5/325MG TABLET ONE (22:59)
[2018-03-21] MEDS ORDERED: OXYcodone/APAP 5/325MG TABLET PO ONE (23:00)
[2018-03-21 23:01] VITALS: BP 108/43
--- NOTE | 2018-03-21 23:03 | NUR ---
MEDICATED PER MD ORDER, PT STTES THAT THE PERCOCET WILL NOT WORK FOR HER AND SHE WAS HOPING FOR A SHOT. PT ALSO STATES THAT SHE KNOWS A LOT ABOUT MEDICAL AND THAT THE HOSPITAL SHE WORKED IN WAS BETTER THAN THIS ONE. TAKES PILL WITHOUT PROBLEMS, TOLERATING PO FLUIDS WELL. AWAIT LABS.
[2018-03-21 23:32] LABS: ALBUMIN 3.9 g/dL (3.4-5.0); ANION GAP 7 mmol/L (5-15); CALCIUM 8.9 mg/dL (8.5-10.1); CHLORIDE 113 mmol/L (98-107)
[2018-03-21 23:34] LABS: BASOPHILS # (AUTO) 0.08 x10^3/uL (0-0.1); BASOPHILS % (AUTO) 1 % (0-1); EOSINOPHILS # (AUTO) 0.25 x10^3/uL (0-0.4); EOSINOPHILS % (AUTO) 2 % (1-7); LYMPHOCYTES # (AUTO) 3.71 x10^3/uL (1-3.4); LYMPHOCYTES % (AUTO) 37 % (22-44); MD NO; MEAN CORPUSCULAR HEMOGLOBIN 33.7 pg (27.0-34.8); MEAN CORPUSCULAR HGB CONC 34.7 g/dL (32.4-35.8); MEAN CORPUSCULAR VOLUME 96.9 fL (80-100); MEAN PLATELET VOLUME 8.9 fL (7.4-10.4); MONOCYTES # (AUTO) 1.12 x10^3/uL (0.2-0.8); MONOCYTES % (AUTO) 11 % (2-9); NEUTROPHILS % (AUTO) 49 % (42-75); PLATELET COUNT 353 x10^3/uL (130-400); RED BLOOD COUNT 4.44 x10^6/uL (3.82-5.3); RED CELL DISTRIBUTION WIDTH 13.7 % (9.6-15.2)
[2018-03-21 23:35] LABS: ALANINE AMINOTRANSFERASE 41 U/L (12-78); ALKALINE PHOSPHATASE 107 U/L (45-117); BILIRUBIN,TOTAL 0.4 mg/dL (0.2-1.0); CREATININE 0.61 mg/dL (0.55-1.02); TOTAL PROTEIN 7.5 g/dL (6.4-8.2)
--- NOTE | 2018-03-21 23:58 | NUR ---
PT SLEEPING QUIETLY, AWAKENED FOR REPEAT VS AND PT STATES THAT SHE HAS NO RELIEF FROM PAIN MEDICATIONS AT THIS TIME. REMAINS HOSTILE TOWARDS THIS NURSE.
--- NOTE | 2018-03-22 00:08 | NUR ---
PT DISCHARGED TO HOME AT THIS TIME, REFUSING INITITALLY TO GIVE HOME ADDRESS STATING "YOU SHOULD HAVE IT" PT AWARE THAT I AMASKING IN ORDER TO GIVE HER A CAD VOUCHER FOR SAFE DISCHARGE TO HOME, PT STATES "FUCK YOU BITCH" THEN PROVIDES ADDRESS WELL STATING THAT SHE IS CALLING [employer] ON THIS NURSE AND THAT SHE HOPES "YOU IN A FIERY CAR CRASH", TO DISCHARGE DESK IN WHEELCHAIR.
== END 2018-03-22 00:25 | disposition home or self-care (01) ==
LOC: ED 23:15
DX: M54.5 Low back pain (principal); G89.29 Other chronic pain; M19.90 Unspecified osteoarthritis, unspecified site; I10 Essential (primary) hypertension; J45.909 Unspecified asthma, uncomplicated; E11.9 Type 2 diabetes mellitus without complications; Z86.73 Personal history of transient ischemic attack (TIA), and cerebral infarction without residual deficits; Z90.710 Acquired absence of both cervix and uterus
CPT/HCPCS: 36415; 80053; 80307; 85025; 93005; 99284

== ENCOUNTER 2018-05-09 21:04 | Inpatient (IN) | payer MEDICARE, MEDICAID ==
[~2018-05-09] VITALS: Ht 162.6 cm; Wt 60.4 kg
[~2018-05-09 21:04] MED LIST changes: +DIAZ2TAB PO; +MIRT30TA PO; +SENN-177 PO; -SENN1TAB8 PO
--- NOTE | 2018-05-09 21:45 | NUR ---
BIBA. PT HAD MGLF AT HOME, HITTING BACK OF THE HEAD. NO LOC/LAC. PT'S AOX4. HX OF STROKE. NEURO INTACT. PT C/O BILATERAL NECK/WRISTS/HIPS/KNEES PAIN AT THIS TIME. ALL MONITORS IN PLACE. CALL LIGHT WITHIN REACH. PT HAS LEFT SIDED WEAKNESS D/T STROKE.
--- NOTE | 2018-05-09 22:31 | NUR ---
PT URINATING IN BEDSIDE [place]ODO AT THIS TIME.
[2018-05-09 22:49] LABS: BASOPHILS # (AUTO) 0.07 x10^3/uL (0-0.1); BASOPHILS % (AUTO) 1 % (0-1); EOSINOPHILS % (AUTO) 1 % (1-7); LYMPHOCYTES # (AUTO) 2.96 x10^3/uL (1-3.4); LYMPHOCYTES % (AUTO) 32 % (22-44); MD NO; MEAN CORPUSCULAR HEMOGLOBIN 34.1 pg (27.0-34.8); MEAN CORPUSCULAR HGB CONC 34.8 g/dL (32.4-35.8); MEAN CORPUSCULAR VOLUME 98.1 fL (80-100); MEAN PLATELET VOLUME 8.2 fL (7.4-10.4); MONOCYTES # (AUTO) 0.71 x10^3/uL (0.2-0.8); MONOCYTES % (AUTO) 8 % (2-9); NEUTROPHILS # (AUTO) 5.34 x10^3/uL (1.8-6.8); NEUTROPHILS % (AUTO) 58 % (42-75); PLATELET COUNT 290 x10^3/uL (130-400); RED BLOOD COUNT 4.43 x10^6/uL (3.82-5.3); RED CELL DISTRIBUTION WIDTH 13.9 % (9.6-15.2)
[2018-05-09 22:58] LABS: ANION GAP 7 mmol/L (5-15); CALCIUM 8.9 mg/dL (8.5-10.1); CHLORIDE 111 mmol/L (98-107); CREATININE 0.51 mg/dL (0.55-1.02)
--- NOTE | 2018-05-09 23:01 | NUR ---
XRAY IN ROOM NOW.
[2018-05-09 23:02] LABS: TROPONIN I < 0.015 ng/mL (0.000-0.045)
--- NOTE | 2018-05-09 23:33 | NUR ---
PT RESTING IN [place]. RESPS EVEN AND UNLABORED. AWAITING DISPO AT THIS TIME.
--- NOTE | 2018-05-10 00:25 | NUR ---
EMT APPLIED SPLINT ON LEFT ARM. PT TOLERATED WELL.
[2018-05-10] MEDS ORDERED: ACETAMINOPHEN 325 MG TABLET PO PRN (00:30)
[2018-05-10] MEDS ORDERED: ONDANSETRON ODT 4 MG PO PRN (00:30)
[2018-05-10] MEDS: MIRTAZAPINE 30 MG TAB.RAPDIS PO SCH ×2 (00:30→20:35)
[2018-05-10] MEDS ORDERED: BISACODYL 10 MG SUPP PR PRN (00:30)
--- NOTE | 2018-05-10 00:46 | NUR ---
FABRICE VARELA: REPORT TO AVERY BAUMAN
[2018-05-10] MEDS: OXYcodone/APAP 10/325MG TABLET PO PRN ×4 (01:22→18:01)
[2018-05-10 02:30] VITALS: BP 100/60
[2018-05-10 02:43] LABS: CULTURE INDICATED? NO; MICROSCOPIC NOT IND
[2018-05-10] MEDS: DIAZEPAM 2 MG TABLET PO PRN ×2 (04:24→20:35)
[2018-05-10] MEDS ORDERED: MORPHINE SULFATE 4 MG/ML, 1ML ONE (05:08)
[2018-05-10] MEDS ORDERED: morphine SULFATE 10 MG/ML, 1ML IVPush PRN ×2 (05:30→09:30)
[2018-05-10] MEDS: NICOTINE 14MG/24 HR PATCH.TD24 TD SCH (08:25)
[2018-05-10] MEDS: GABAPENTIN 300 MG CAPSULE PO SCH ×3 (08:25→20:35)
[2018-05-10] MEDS: SENNA/DOCUSATE TABLET PO SCH (08:25)
[2018-05-10] MEDS: CLOPIDOGREL 75 MG TABLET PO SCH (08:25)
[2018-05-10] MEDS: SODIUM CHLORIDE FLUSH 10ML SYR IVF SCH ×2 (08:25→20:59)
[2018-05-10 08:34] VITALS: BP 110/65
[2018-05-10] MEDS ORDERED: metFORMIN 500 MG TABLET PO SCH (09:00)
[2018-05-10 13:06] VITALS: BP 123/61
[2018-05-10] MEDS ORDERED: DEXTROSE 50%, 50ML SYRINGE IVPush PRN (13:30)
[2018-05-10] MEDS ORDERED: GLUCAGON 1 MG IM PRN (13:30)
[2018-05-10] MEDS ORDERED: DEXTROSE 4 GM TAB.CHEW PO PRN (13:30)
[2018-05-10] MEDS: POLYETHYLENE GLYCOL 17 GM PACKET PO PRN (16:19)
[2018-05-10] MEDS: HEPARIN 5,000 UNITS/ML, 1ML SQ SCH (16:19)
[2018-05-10] MEDS: INSULIN LISPRO 100 UNITS/ML, PEN SQ-INSULIN SCH ×2 (17:10→20:58)
[2018-05-10 19:26] VITALS: BP 110/57
[2018-05-10] MEDS: ATORVASTATIN 80 MG TABLET PO SCH (20:34)
[2018-05-11] VITALS: BP_SYST 104; BP_SYST 128; BP_DIAS 61; BP_DIAS 67
[2018-05-11] MEDS: HEPARIN 5,000 UNITS/ML, 1ML SQ SCH ×3 (01:00→16:09)
[2018-05-11] MEDS: SODIUM CHLORIDE FLUSH 10ML SYR IVF SCH ×6 (01:22→21:01)
[2018-05-11] MEDS: OXYcodone/APAP 10/325MG TABLET PO PRN ×3 (01:22→16:09)
[2018-05-11 05:31] LABS: BASOPHILS # (AUTO) 0.02 x10^3/uL (0-0.1); BASOPHILS % (AUTO) 0 % (0-1); EOSINOPHILS # (AUTO) 0.18 x10^3/uL (0-0.4); EOSINOPHILS % (AUTO) 2 % (1-7); LYMPHOCYTES # (AUTO) 2.36 x10^3/uL (1-3.4); LYMPHOCYTES % (AUTO) 26 % (22-44); MD NO; MEAN CORPUSCULAR HEMOGLOBIN 33.9 pg (27.0-34.8); MEAN CORPUSCULAR HGB CONC 34.4 g/dL (32.4-35.8); MEAN CORPUSCULAR VOLUME 98.5 fL (80-100); MEAN PLATELET VOLUME 8.4 fL (7.4-10.4); MONOCYTES # (AUTO) 0.73 x10^3/uL (0.2-0.8); MONOCYTES % (AUTO) 8 % (2-9); NEUTROPHILS # (AUTO) 5.91 x10^3/uL (1.8-6.8); NEUTROPHILS % (AUTO) 64 % (42-75); PLATELET COUNT 288 x10^3/uL (130-400); RED BLOOD COUNT 4.34 x10^6/uL (3.82-5.3); RED CELL DISTRIBUTION WIDTH 13.8 % (9.6-15.2)
[2018-05-11 05:34] LABS: CHLORIDE 113 mmol/L (98-107)
[2018-05-11 05:42] LABS: ALBUMIN 3.5 g/dL (3.4-5.0); ANION GAP 8 mmol/L (5-15); CALCIUM 8.7 mg/dL (8.5-10.1); CREATININE 0.46 mg/dL (0.55-1.02)
[2018-05-11] MEDS ORDERED: POTASSIUM CHLORIDE 20 MEQ TAB.ER.PRT PO ONE (07:00)
[2018-05-11 07:10] VITALS: BP 112/58
[2018-05-11] MEDS: INSULIN LISPRO 100 UNITS/ML, PEN SQ-INSULIN SCH ×4 (07:11→20:53)
[2018-05-11] MEDS: CLOPIDOGREL 75 MG TABLET PO SCH (08:36)
[2018-05-11] MEDS: POLYETHYLENE GLYCOL 17 GM PACKET PO PRN (08:36)
[2018-05-11] MEDS: GABAPENTIN 300 MG CAPSULE PO SCH ×3 (08:36→20:54)
[2018-05-11] MEDS: NICOTINE 14MG/24 HR PATCH.TD24 TD SCH (08:37)
[2018-05-11] MEDS: SENNA/DOCUSATE TABLET PO SCH (08:37)
[2018-05-11 13:15] VITALS: BP 110/59
[2018-05-11] MEDS: DIAZEPAM 2 MG TABLET PO PRN (18:35)
[2018-05-11 19:49] VITALS: BP 113/60
[2018-05-11] MEDS: ATORVASTATIN 80 MG TABLET PO SCH (20:54)
[2018-05-11] MEDS: MIRTAZAPINE 30 MG TAB.RAPDIS PO SCH (20:54)
[2018-05-12 01:10] VITALS: BP 123/63
[2018-05-12] MEDS: OXYcodone/APAP 10/325MG TABLET PO PRN ×3 (01:22→16:37)
[2018-05-12] MEDS: HEPARIN 5,000 UNITS/ML, 1ML SQ SCH ×3 (01:23→16:37)
[2018-05-12] MEDS: DIAZEPAM 2 MG TABLET PO PRN ×3 (05:05→23:12)
[2018-05-12] MEDS: INSULIN LISPRO 100 UNITS/ML, PEN SQ-INSULIN SCH ×4 (06:44→21:00)
[2018-05-12 07:57] VITALS: BP 112/67
[2018-05-12] MEDS: SENNA/DOCUSATE TABLET PO SCH (09:10)
[2018-05-12] MEDS: CLOPIDOGREL 75 MG TABLET PO SCH (09:10)
[2018-05-12] MEDS: SODIUM CHLORIDE FLUSH 10ML SYR IVF SCH ×3 (09:11→22:01)
[2018-05-12] MEDS: NICOTINE 14MG/24 HR PATCH.TD24 TD SCH (09:11)
[2018-05-12] MEDS: GABAPENTIN 300 MG CAPSULE PO SCH ×3 (09:11→22:01)
[2018-05-12 13:00] VITALS: BP 120/65
[2018-05-12 20:08] VITALS: BP 124/62
[2018-05-12] MEDS: MIRTAZAPINE 30 MG TAB.RAPDIS PO SCH (22:00)
[2018-05-12] MEDS: ATORVASTATIN 80 MG TABLET PO SCH (22:00)
[2018-05-13 00:58] VITALS: BP 142/59
[2018-05-13] MEDS: OXYcodone/APAP 10/325MG TABLET PO PRN ×3 (01:04→16:23)
[2018-05-13] MEDS: HEPARIN 5,000 UNITS/ML, 1ML SQ SCH ×3 (01:04→16:23)
[2018-05-13] MEDS: INSULIN LISPRO 100 UNITS/ML, PEN SQ-INSULIN SCH ×4 (07:00→20:45)
[2018-05-13 08:06] VITALS: BP 126/66
[2018-05-13] MEDS: GABAPENTIN 300 MG CAPSULE PO SCH ×3 (08:24→20:44)
[2018-05-13] MEDS: CLOPIDOGREL 75 MG TABLET PO SCH (08:24)
[2018-05-13] MEDS: SENNA/DOCUSATE TABLET PO SCH (08:24)
[2018-05-13] MEDS: NICOTINE 14MG/24 HR PATCH.TD24 TD SCH (08:25)
[2018-05-13] MEDS: SODIUM CHLORIDE FLUSH 10ML SYR IVF SCH ×4 (08:30→20:45)
[2018-05-13 14:12] VITALS: BP 112/71
[2018-05-13] MEDS: DIAZEPAM 2 MG TABLET PO PRN ×2 (14:24→20:44)
[2018-05-13 19:11] VITALS: BP 125/63
[2018-05-13] MEDS: ATORVASTATIN 80 MG TABLET PO SCH (20:44)
[2018-05-13] MEDS: MIRTAZAPINE 30 MG TAB.RAPDIS PO SCH (20:44)
[2018-05-14 00:25] VITALS: BP 119/66
[2018-05-14] MEDS: OXYcodone/APAP 10/325MG TABLET PO PRN ×3 (00:29→17:44)
[2018-05-14] MEDS: HEPARIN 5,000 UNITS/ML, 1ML SQ SCH ×3 (00:29→17:07)
[2018-05-14] MEDS: POLYETHYLENE GLYCOL 17 GM PACKET PO PRN (00:29)
[2018-05-14] MEDS: DIAZEPAM 2 MG TABLET PO PRN ×3 (03:42→17:06)
[2018-05-14 08:04] VITALS: BP 127/67
[2018-05-14] MEDS: INSULIN LISPRO 100 UNITS/ML, PEN SQ-INSULIN SCH ×4 (08:07→21:00)
[2018-05-14] MEDS: GABAPENTIN 300 MG CAPSULE PO SCH ×3 (09:35→22:02)
[2018-05-14] MEDS: SODIUM CHLORIDE FLUSH 10ML SYR IVF SCH ×4 (09:36→21:00)
[2018-05-14] MEDS: SENNA/DOCUSATE TABLET PO SCH (09:36)
[2018-05-14] MEDS: CLOPIDOGREL 75 MG TABLET PO SCH (09:36)
[2018-05-14] MEDS: NICOTINE 14MG/24 HR PATCH.TD24 TD SCH (09:37)
[2018-05-14 13:03] VITALS: BP 99/63
[2018-05-14 18:46] VITALS: BP 105/68
[2018-05-14] MEDS: MIRTAZAPINE 30 MG TAB.RAPDIS PO SCH (21:55)
[2018-05-14] MEDS: ATORVASTATIN 80 MG TABLET PO SCH (21:55)
[2018-05-14] MEDS ORDERED: OXYcodone/APAP 10/325MG TABLET PO ONE (23:00)
[2018-05-15] MEDS: HEPARIN 5,000 UNITS/ML, 1ML SQ SCH ×3 (01:00→16:55)
[2018-05-15 01:46] VITALS: BP 114/59
[2018-05-15] MEDS: OXYcodone/APAP 10/325MG TABLET PO PRN ×2 (05:32→14:19)
[2018-05-15] MEDS: INSULIN LISPRO 100 UNITS/ML, PEN SQ-INSULIN SCH (08:03)
[2018-05-15 08:27] VITALS: BP 99/59
[2018-05-15] MEDS: SENNA/DOCUSATE TABLET PO SCH (09:45)
[2018-05-15] MEDS: GABAPENTIN 300 MG CAPSULE PO SCH ×3 (09:46→20:51)
[2018-05-15] MEDS: SODIUM CHLORIDE FLUSH 10ML SYR IVF SCH ×4 (09:46→20:51)
[2018-05-15] MEDS: CLOPIDOGREL 75 MG TABLET PO SCH (09:46)
[2018-05-15] MEDS: DIAZEPAM 2 MG TABLET PO PRN ×2 (09:46→17:15)
[2018-05-15] MEDS: NICOTINE 14MG/24 HR PATCH.TD24 TD SCH (09:47)
[2018-05-15 14:07] VITALS: BP 120/60
[2018-05-15] MEDS: metFORMIN 500 MG TABLET PO SCH (16:55)
[2018-05-15] MEDS ORDERED: INSULIN LISPRO 100 UNITS/ML, PEN SQ-INSULIN SCH (17:00)
[2018-05-15 20:25] VITALS: BP 115/67
[2018-05-15] MEDS: ATORVASTATIN 80 MG TABLET PO SCH (20:50)
[2018-05-15] MEDS: MIRTAZAPINE 30 MG TAB.RAPDIS PO SCH (20:51)
[2018-05-15] MEDS ORDERED: BUTALB/APAP/CAFFEINE 50MG/325MG/40MG PO ONE (22:30)
[2018-05-16] MEDS: HEPARIN 5,000 UNITS/ML, 1ML SQ SCH ×2 (01:15→08:30)
[2018-05-16] MEDS: DIAZEPAM 2 MG TABLET PO PRN ×3 (01:47→15:06)
[2018-05-16] MEDS: OXYcodone/APAP 10/325MG TABLET PO PRN ×2 (01:47→09:45)
[2018-05-16 02:13] VITALS: BP 118/63
[2018-05-16] MEDS: SENNA/DOCUSATE TABLET PO SCH (08:31)
[2018-05-16] MEDS: GABAPENTIN 300 MG CAPSULE PO SCH (08:31)
[2018-05-16] MEDS: metFORMIN 500 MG TABLET PO SCH (08:31)
[2018-05-16] MEDS: SODIUM CHLORIDE FLUSH 10ML SYR IVF SCH ×2 (08:32)
[2018-05-16] MEDS: NICOTINE 14MG/24 HR PATCH.TD24 TD SCH ×2 (08:32→08:37)
[2018-05-16] MEDS: CLOPIDOGREL 75 MG TABLET PO SCH (08:32)
[2018-05-16] MEDS ORDERED: OXYC-307 PO (14:44)
[2018-05-16 15:41] VITALS: BP 99/60
== END 2018-05-16 15:45 | DRG 543 ==
LOC: ED 21:36 → EDIP 05-10 00:12 → 4NOR 05-10 01:00
PROVIDERS: ADMIT Family Medicine; ATTEND Family Medicine
PROC: 2W3DX1Z Immobilization of Left Lower Arm using Splint (ICD-10-PCS; principal; 2018-05-10)
PROC: 0T9B70Z Drainage of Bladder with Drainage Device, Via Natural or Artificial Opening (ICD-10-PCS; 2018-05-10)
DX: M80.032A Age-related osteoporosis with current pathological fracture, left forearm, initial encounter for fracture (principal); I69.354 Hemiplegia and hemiparesis following cerebral infarction affecting left non-dominant side; I69.351 Hemiplegia and hemiparesis following cerebral infarction affecting right dominant side; E11.42 Type 2 diabetes mellitus with diabetic polyneuropathy; E11.51 Type 2 diabetes mellitus with diabetic peripheral angiopathy without gangrene; E78.5 Hyperlipidemia, unspecified; F17.210 Nicotine dependence, cigarettes, uncomplicated; F41.9 Anxiety disorder, unspecified; G43.909 Migraine, unspecified, not intractable, without status migrainosus; W01.0XXA Fall on same level from slipping, tripping and stumbling without subsequent striking against object, initial encounter; G89.29 Other chronic pain; I10 Essential (primary) hypertension; J44.9 Chronic obstructive pulmonary disease, unspecified; I25.10 Atherosclerotic heart disease of native coronary artery without angina pectoris; I65.29 Occlusion and stenosis of unspecified carotid artery; I77.1 Stricture of artery; M11.269 Other chondrocalcinosis, unspecified knee; M16.0 Bilateral primary osteoarthritis of hip; M85.80 Other specified disorders of bone density and structure, unspecified site; R29.6 Repeated falls; S09.90XA Unspecified injury of head, initial encounter; Y93.89 Activity, other specified; Y92.89 Other specified places as the place of occurrence of the external cause; Y99.8 Other external cause status; Z90.710 Acquired absence of both cervix and uterus; Z90.89 Acquired absence of other organs; Z91.19 Patient's noncompliance with other medical treatment and regimen; Z82.3 Family history of stroke
CPT/HCPCS: 36415; 70450; 72170; 72192; 80048; 81003; 82040; 82962; 84484; 85025; 93005; 99285; G0378; J1644; J2270

== ENCOUNTER 2018-06-19 09:13 | Emergency (ER) | payer MEDICARE, MEDICAID ==
[~2018-06-19] VITALS: Ht 160 cm; Wt 56.0 kg
[2018-06-19 09:23] VITALS: BP 135/77
--- NOTE | 2018-06-19 09:31 | NUR ---
PATIENT BIB [facility] FROM HOME FOR GENERALIZED BODY PAIN DUE TO DRUG WITHDRAWAL, PATIENT REPORTS RUNNING OUT OF PAIN MEDS AND MISSED DOCTORS APT. NO S/S NOTED AT THIS TIME. PATIENT PROVIDED WARM BLANKET PER REQUEST. AWAITING MD ORDERS. CALL LIGHT WITHIN REACH. PER [facility], ONLY BELONGINGS BROUGHT WITH PATIENT ARE KEYS, ALL PERSONAL BELONGINGS LEFT AT HOME.
--- NOTE | 2018-06-19 10:05 | NUR ---
PATIENT ASSISTED TO BATHROOM AND CAB VIA WHEELCHAIR. PATIENT TO HAVE SOMEONE GRAB HER WHEELCHAIR AND ASSIST HER AT HOME. PATIENT UPSET YELLING THROUGH ANAYA STATING "I HATE THAT DOCTOR AND THIS HOSPITAL SUCKS." PATIENT REQUESTING PAIN MEDS, REFUSING IBUPROPHEN AT THIS TIME. PATIENT PROVIDED DC PAPERWORK, CONFIRMS UNDERSTANDING OF DC PAPERWORK BUT THROWS PAPER ON THE FLOOR PRIOR TO LEAVING ROOM. PATIENT ESCORTED OUT VIA WHEELCHAIR TO CAB BY THIS RN.
--- NOTE | 2018-06-19 10:08 | NUR ---
PATIENT PROVIDED TAXI VOUCHER.
== END 2018-06-19 10:09 | disposition home or self-care (01) ==
LOC: ED 09:51
DX: R52 Pain, unspecified (principal); I10 Essential (primary) hypertension; E11.9 Type 2 diabetes mellitus without complications; J44.9 Chronic obstructive pulmonary disease, unspecified; Z86.73 Personal history of transient ischemic attack (TIA), and cerebral infarction without residual deficits; F17.200 Nicotine dependence, unspecified, uncomplicated
CPT/HCPCS: 99283